=== PATIENT | male | born 1960 | race Caucasian/White ===

== ENCOUNTER 2018-04-28 09:17 | Emergency (ER) | payer OTHER ==
[~2018-04-28] VITALS: Ht 170 cm; Wt 75.7 kg
[~2018-04-28 09:17] MED LIST: ALEVE220 MG PO; FLEXERIL10 MG PO; HYDROCODONE BIT1 T11 PO; MOTRIN800 MG PO; NO MEDS; PREDNICOT20 MG PO; VICODIN ES 7501 TAB PO
[2018-04-28] MEDS ORDERED: KEFLEX500 M1 PO (10:34)
== END 2018-04-28 11:27 | disposition home or self-care (01) ==
LOC: ED 09:17
DX: S61.210A Laceration without foreign body of right index finger without damage to nail, initial encounter (principal); F17.200 Nicotine dependence, unspecified, uncomplicated; W25.XXXA Contact with sharp glass, initial encounter; Y93.89 Activity, other specified; Y92.89 Other specified places as the place of occurrence of the external cause; Y99.8 Other external cause status

== ENCOUNTER → 2019-06-24 | Outpatient (CLI) | payer OTHER ==
[~2019-06-24] MED LIST changes: +KEFLEX500 M1 PO
== END | disposition home or self-care (01) ==
LOC: RAD 11:21
DX: J43.9 Emphysema, unspecified (principal)

== ENCOUNTER → 2021-05-05 | Outpatient (CLI) | payer OTHER ==
[2021-05-05 10:06] LABS: BASO # 0.1 10*3/uL (0.0-0.1); EOS # 0.2 10*3/uL (0.0-0.4); EOS % 3.2 % (1.0-4.0); HEMATOCRIT 48.7 % (42.0-52.0); LYMPH # 2.3 10*3/uL (1.3-4.4); LYMPH % 32.3 % (27.0-41.0); MEAN CELL VOLUME 85.7 fl (80.0-94.0); MEAN CORPUSCULAR HGB 28.2 pg (27.0-31.0); MEAN CORPUSCULAR HGB CONC 32.9 g/dl (33.0-37.0); MEAN PLATELET VOLUME 10.6 fl (9.6-12.3); MONO # 0.7 10*3/uL (0.1-1.0); MONO % 9.8 % (3.0-9.0); NEUT # 3.7 10*3/uL (2.3-7.9); NEUT % 53.4 % (47.0-73.0); PLATELET COUNT AUTOMATED 255 10*3/uL (130-400); RED BLOOD COUNT 5.68 10*6/uL (4.50-5.90); RED CELL DISTRI WIDTH 12.7 % (0-14.5)
[2021-05-05 10:12] LABS: BILIRUBIN Negative (Negative); BLOOD Negative (Negative); CLARITY Clear (Clear); COLOR Yellow (Yellow); GLUCOSE Negative (Negative); KETONE Trace (Negative); LEUKO ESTERASE Negative (Negative); NITRITE Negative (Negative); SPECIFIC GRAVITY 1.025 (1.001-1.030)
[2021-05-05 10:36] LABS: ALBUMIN 3.8 gm/dl (3.1-4.5); BUN 15 mg/dl (7-24); CHLORIDE 105 mmol/L (98-107); CHOLESTEROL 202 mg/dL (<200); CREATININE 0.95 mg/dL (0.70-1.30); POTASSIUM 4.6 mmol/L (3.5-5.1); SGOT/AST 28 IU/L (3-35); SGPT/ALT 59 U/L (12-78); SODIUM 138 mmol/L (136-145); TRIGLYCERIDES 300 mg/dl (<150)
[2021-05-05 10:38] LABS: ALKALINE PHOSPHATASE 56 U/L (45-117); LDL CHOLESTEROL 105 mg/dL (9-159); TOTAL PROTEIN 7.5 gm/dL (6.4-8.2)
[2021-05-05 11:20] LABS: RBC 0-2 rbc/hpf (0-2)
== END | disposition home or self-care (01) ==
LOC: LAB 08:33
PROVIDERS: ATTEND Family Medicine
DX: R10.9 Unspecified abdominal pain (principal); M47.814 Spondylosis without myelopathy or radiculopathy, thoracic region; M47.816 Spondylosis without myelopathy or radiculopathy, lumbar region

== ENCOUNTER → 2022-01-28 | Outpatient (CLI) | payer OTHER, MEDICAID ==
[2022-01-28 12:28] LABS: BILIRUBIN Negative (Negative); BLOOD Negative (Negative); CLARITY Clear (Clear); COLOR Yellow (Yellow); GLUCOSE Negative (Negative); KETONE Negative (Negative); LEUKO ESTERASE Negative (Negative); NITRITE Negative (Negative); PH 6.5 (4.5-8.0); SPECIFIC GRAVITY <= 1.005 (1.001-1.030); UROBILINOGEN 0.2 E.U./dl (0.0-1.0)
[2022-01-28 13:38] LABS: RBC 0-2 rbc/hpf (0-2)
== END | disposition home or self-care (01) ==
LOC: LAB 11:21
PROVIDERS: ATTEND Family Medicine
DX: Z12.5 Encounter for screening for malignant neoplasm of prostate (principal); N40.1 Benign prostatic hyperplasia with lower urinary tract symptoms

== ENCOUNTER → 2022-09-11 | Outpatient (CLI) | payer OTHER, MEDICAID ==
[2022-09-11 14:13] LABS: BASO # 0.1 10*3/uL (0.0-0.1); BASO % 0.9 % (0.0-1.0); EOS # 0.3 10*3/uL (0.0-0.4); EOS % 3.9 % (1.0-4.0); HEMATOCRIT 44.8 % (42.0-52.0); LYMPH # 2.6 10*3/uL (1.3-4.4); LYMPH % 36.8 % (27.0-41.0); MEAN CELL VOLUME 87.8 fl (80.0-94.0); MEAN CORPUSCULAR HGB 29.6 pg (27.0-31.0); MEAN CORPUSCULAR HGB CONC 33.7 g/dl (33.0-37.0); MEAN PLATELET VOLUME 9.3 fl (9.6-12.3); MONO # 0.7 10*3/uL (0.1-1.0); MONO % 10.5 % (3.0-9.0); NEUT # 3.3 10*3/uL (2.3-7.9); NEUT % 47.6 % (47.0-73.0); PLATELET COUNT AUTOMATED 239 10*3/uL (130-400); RED CELL DISTRI WIDTH 12.5 % (0-14.5); WHITE BLOOD COUNT 6.9 10*3/uL (4.8-10.8)
[2022-09-11 14:51] LABS: ALKALINE PHOSPHATASE 55 U/L (46-116); BUN 15 mg/dl (9-23); CHLORIDE 105 mmol/L (98-107); CHOLESTEROL 170 mg/dL (<200); SGPT/ALT 32 U/L (10-49); THYROID STIM HORMONE (HS) 1.993 uIU/ml (0.550-4.780); TOTAL PROTEIN 6.8 gm/dL (6.0-8.0); TRIGLYCERIDES 425 mg/dl (<150)
== END | disposition home or self-care (01) ==
LOC: US 01:21 → LAB 01:21 → US 15:00
PROVIDERS: ATTEND Family Medicine
DX: I65.23 Occlusion and stenosis of bilateral carotid arteries (principal); R55 Syncope and collapse; R53.83 Other fatigue